=== PATIENT | female | born 1960 | race Two or more races ===

== ENCOUNTER 2018-03-13 12:34 | Emergency (ER) | payer MEDICAID ==
[~2018-03-13] VITALS: Ht 172.7 cm; Wt 103.0 kg
--- NOTE | 2018-03-13 12:45 | NUR ---
HIGH BLOOD PRESSURE x 2 DAYS. BILATERAL LOWER EXTREMITIES SWELLING,x1 MONTH. NAD NOTED, VSS, RESP EVEN AND UNLABORED. PT WAS PUT ON MONITOR AND HOSPITAL GOWN.
[2018-03-13 13:26] LABS: HEMATOCRIT 35 % (33-45); HEMOGLOBIN 12.8 g/dL (11.5-14.8); MEAN CORPUSCULAR HEMOGLOBIN 32 PG (26.0-33.0); MEAN CORPUSCULAR HGB CONC 37 g/dl (31.0-36.0); MEAN CORPUSCULAR VOLUME 86 fL (82-100); PLATELET COUNT (AUTO) 223 /CMM (150-450); RDW COEFFICIENT OF VARIATION 12.5 (11.5-15.0); RED BLOOD CELL COUNT(AUTO) 4.05 MIL/uL (4.0-5.2); WHITE BLOOD COUNT (AUTO) 6.9 K/uL (4.3-11.0)
[2018-03-13 13:31] LABS: CALCIUM, SERUM 9.3 mg/dL (8.5-10.1); CARBON DIOXIDE 29 mmol/L (21-32); CHLORIDE 103 mmol/L (98-107); CREATININE 0.6 mg/dL (0.6-1.3); GLUCOSE 158 mg/dL (74-106); POTASSIUM 3.9 mmol/L (3.5-5.1); SODIUM SERUM 137 mmol/L (136-145); UREA NITROGEN, BLOOD 8 mg/dL (7-18)
[2018-03-13 13:34] LABS: INR 0.86 (0.85-1.15)
[2018-03-13 13:38] LABS: TROPONIN I < 0.017 ng/mL (0.00-0.056)
[2018-03-13] MEDS ORDERED: SITA100T PO (13:42)
[2018-03-13] MEDS ORDERED: METF500T6 PO (13:42)
[2018-03-13] MEDS ORDERED: GLIP10TA11 PO (13:42)
[2018-03-13 13:43] LABS: ALANINE AMINOTRANSFERASE 41 U/L (12-78); ALBUMIN 2.6 g/dL (3.4-5.0); ALKALINE PHOSPHATASE 69 U/L (46-116); ASPARTATE AMINOTRANSFERASE 22 U/L (15-37); B-TYPE NATRIURETIC PEPTIDE 38 PG/ML (0-125); BILIRUBIN,TOTAL 0.2 mg/dL (0.2-1.0); TOTAL PROTEIN, SERUM 6.3 g/dL (6.4-8.2)
[2018-03-13] MEDS ORDERED: ENAL2.5T PO (13:43)
[2018-03-13] MEDS ORDERED: CARV3.122 PO (13:43)
[2018-03-13 14:14] VITALS: BP 159/82
--- NOTE | 2018-03-13 14:18 | NUR ---
Patient discharged to home in stable condition. Written and verbal after care instructions given. Patient verbalizes understanding of instruction.IV removed. Catheter intact and site benign. Pressure and 4x4 applied to site. No bleeding noted. Prescription given.
[2018-03-13 16:16] LABS: EOSINOPHILS % (MANUAL) 2 % (0-4); LYMPHOCYTES % (MANUAL) 35 % (16-48); MONOCYTES % (MANUAL) 3 % (0-11.0); NEUTROPHILS % (MANUAL) 60 (42-76)
== END 2018-03-13 14:19 | disposition home or self-care (01) ==
LOC: ER 12:35
DX: R60.0 Localized edema (principal); I10 Essential (primary) hypertension; E11.9 Type 2 diabetes mellitus without complications
CPT/HCPCS: 36415; 71045; 80048; 80076; 83880; 84484; 85025; 85730; 93005; 99285; A4606; Z7610